=== PATIENT | female | born 1955 | race Caucasian/White ===

== ENCOUNTER → 2025-03-04 12:04 | Outpatient (REF) | payer BC, SELFPAY | LOC: DHSLP 12:04 | PROVIDERS: ATTENDING PHYSICIAN Internal Medicine Critical Care Medicine | DX: G47.33 Obstructive sleep apnea (adult) (pediatric) (principal); R06.83 Snoring; E66.9 Obesity, unspecified; R09.82 Postnasal drip; R09.02 Hypoxemia; J45.909 Unspecified asthma, uncomplicated; Z68.34 Body mass index [BMI] 34.0-34.9, adult; Z87.891 Personal history of nicotine dependence | CPT/HCPCS: 95800 ==